=== PATIENT | female | born 1955 | race Caucasian/White ===

== ENCOUNTER 2021-03-02 02:15 | Emergency (ER) | payer OTHER, MEDICARE ==
[~2021-03-02] VITALS: Ht 167.6 cm; Wt 73.9 kg
[2021-03-02 02:19] VITALS: BP_SYST 153
[2021-03-02] MEDS: DIPH-TET-PERTUS Vaccine 0.5 ML VIAL (ADACEL) I.M. ONE (02:50)
[2021-03-02] MEDS: ceFAZolin SODIUM 1 GM VIAL IM ONE (02:54)
[2021-03-02] MEDS ORDERED: HYDR-3917 PO (04:28)
[2021-03-02] MEDS ORDERED: AMOX-426 PO (04:28)
[2021-03-02] MEDS ORDERED: IBUP-1969 PO (04:28)
[2021-03-02] MEDS: KETOROLAC TROMETHAMINE 60 MG/2 ML VIAL IM ONE (04:29)
[2021-03-02 05:05] VITALS: BP_SYST 145
== END 2021-03-02 05:05 | disposition home or self-care (01) ==
LOC: SED 02:15
DX: S68.111A Complete traumatic metacarpophalangeal amputation of left index finger, initial encounter (principal); W23.0XXA Caught, crushed, jammed, or pinched between moving objects, initial encounter; Y93.89 Activity, other specified; Y92.89 Other specified places as the place of occurrence of the external cause; Y99.8 Other external cause status
CPT/HCPCS: 73140; 90471; 90715; 96372; 99284; J0690; J1885